=== PATIENT | female | born 2000 | race Caucasian/White ===

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

== ENCOUNTER 2024-04-25 07:23 | Inpatient (IN) ==
[2024-04-25] MEDS ORDERED: OXYTOCIN 30 UNITS/NSS 30 UNITS/500 ML BAG IV PRN (07:51)
[2024-04-25] MEDS ORDERED: LIDOCAINE 1% LOCAL 20 ML VIAL INFIL PRN (07:51)
--- NOTE | 2024-04-25 08:01 | History & Physical Report ---
Date of Service April 25, 2024 Assessment & Plan (1) Carrier of group B Streptococcus: (2) Obesity affecting : (3) Encounter for induction of labor: (4) DVT (deep venous thrombosis): Plan admit for iol. fetus category one. pitocin induction. epidural on demand, arom when indicated. Anticipate . No heparin for two days. Plan lovenox pp. Admission and Anticipated Discharge Date Admission Date: April 25, 2024 History of Present Illness Chief Complaint: iol Primary Care Provider: NO PCP Patient is aa 24 with iup at 39 3/7 weeks who presents for scheduled iol as was on heparin for a hx of dvt. has been uncomplicated. Presented for a bulb last night but it fell out prior to leaving. Notees no vb/lof. +fm. and Delivery Plans Hx of DVT on OCP *follow with heme and recs Lovenox and switching to heparin at 36wks - on heparin 5000u bid Lovenox pp - IOL 04/25 Obesity (BMI between 35-39 @ beginning of ) *Growth US @ 32 wks *Weekly NSTs @ 36wks * GBS + - Treat in labor Rubella equivocal-offer pp OB Labs: Blood Type A Positive 09/24/23 Antibody Screen NEGATIVE 09/24/23 Hgb 14.1 g/dl (12.0-16.0) 03/30/24 Hct 42.0 % (37.0-47.0) 03/30/24 MCV 83.8 fL (80.0-100.0) 03/30/24 Plt Count 250 K/uL (130-400) 03/30/24 Rubella IgG Antibody Equivocal (Immune) L 09/24/23 RPR Nonreactive (Nonreactive) 09/24/23 Hep Bs Antigen Negative (Negative) 09/24/23 Hepatitis C Antibody Negative (Negative) 09/24/23 HIV 1&2 Ab/P24 Ag 4thGn Negative (Negative) 09/24/23 Glucose 1 Hr 50 gm 132 mg/dl (70-130) H 11/19/23 OB Optional Labs: Chlamydia trachomatis RNA Not Detected (NotDetected) 09/24/23 Neisseria gonorrhoeae RNA Not Detected (NotDetected) 09/24/23 Thyroid Stimulating Hormone (TSH) 1.910 uIu/ml (0.300-4.500) 10/08/23 Labs Reviewed: neg horizon 2022 gbs pos--akh Allergies Allergy/AdvReac Type Severity Reaction Status Date / Time cat dander Allergy Severe respiratory Verified 04/24/24 19:39 distress dog dander Allergy Severe respiratory Verified 04/24/24 19:39 distress grass pollen Allergy Severe respiratory Verified 04/24/24 19:39 distress house dust mite Allergy Severe respiratory Verified 04/24/24 19:39 distress ragweed pollen Allergy Severe respiratory Verified 04/24/24 19:39 distress No Known Drug Allergies AdvReac Unknown NKDA Verified 04/24/24 19:39 "MULTIPLE ENVIROMENTAL" Allergy Severe RESPIRATORY Uncoded 04/24/24 13:25 DISTRESS TREES Allergy Severe respiratory Uncoded 04/24/24 19:39 distress Weeds Allergy Severe respiratory Uncoded 04/24/24 19:39 distress Home Medications Medication Instructions Recorded Confirmed Type heparin, porcine (PF) 5,000 5,000 unit subcut BID 04/24/24 04/25/24 History unit/0.5 mL injection solution vits no.124-ferrous fum 1 tab PO DAILY 04/24/24 04/25/24 History 27 mg iron-folic acid 800 mcg tablet ( Vitamin) Patient History Medical History Varicella vaccination DVT (deep venous thrombosis) had 5 years ago Allergic rhinitis Common migraine without aura Urinary tract infection History of COVID-19 diagnosed 03/01/20 @ [facility] in [place]--chest pressure/cough Abdominal pain, lower Surgical History S/P colonoscopy History of wisdom tooth extraction S/P tonsillectomy as a child Family History Aunt Congenital heart disease Family history of diabetes mellitus Father Mitral valve prolapse Grandfather (Maternal) Family history of diabetes mellitus Uncle Family history of diabetes mellitus Other Diabetes Myocardial infarction No family history of adverse response to anesthesia Denies family history of Ovarian cancer Prostate cancer Breast cancer Colorectal cancer Uterine cancer Social History Smoking Status: Never smoker Second Hand Exposure: Yes (grandparents smoked); Do You Dip or Chew Tobacco: No; Hx Alcohol Use: No Hx Substance Use: No Preferred Language: Latvian Communication Ability: Effective Broomcorn Grader Required: No Beliefs That Will Affect Care: None marital status: marital status details: Marvin Jenkins (28) [phone] Current Living Situation: Spouse Current Living Situation Comment: Lives with and dog current occupational status: employed current occupation: [employer] Feels Safe at Home: Yes Safety Concerns: Feels Safe At This Time Assistive Devices: None 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
[2024-04-25 08:28] LABS: Hematocrit (blood only) 40.4 % (37.0-47.0); Mean Corpuscular Hemoglobin 28.9 pg (25.0-34.0); Mean Corpuscular Hgb Conc 34.7 g/dL (32.0-36.0); Mean Corpuscular Volume 83.3 fL (80.0-100.0); Mean Platelet Volume 11.8 fL (9.4-12.4); Platelet Count 205 K/uL (130-400); RDW Coefficient of Variation 14.7 % (11.5-14.5); RDW Standard Deviation 44.5 fL (36.4-46.3); Red Blood Count 4.85 M/uL (4.20-5.40); White Blood Count 14.31 K/ul (4.8-10.8)
[2024-04-25 08:54] LABS: INR 0.9 (0.9-1.1); Partial Thromboplastin Time 26 Seconds (21-31); Prothrombin Time 9.7 Seconds (9.0-12.0)
[2024-04-25] MEDS: PENICILLIN GK 6 MU in SODIUM CHLORIDE 0.9% 250 ML IV STA (08:59)
[2024-04-25] MEDS: OXYTOCIN 30 UNITS/NSS 30 UNITS/500 ML BAG IV PRN (09:00)
[2024-04-25] MEDS: SODIUM CHLORIDE 0.9% 1,000 ML IV SCH (10:06)
[2024-04-25] MEDS: PENICILLIN GK 3 MU in DEXTROSE 5% 100 ML IV PRN (12:33)
[2024-04-25] MEDS: SODIUM CHLORIDE 0.9% PF INJ 10 ML VIAL ONE (14:25)
[2024-04-25] MEDS: ePHEDrine sulfate 50 MG/ML AMP ONE (14:25)
[2024-04-25] MEDS: fentaNYL citrate PF 100 MCG/2 ML VIAL ONE (14:25)
[2024-04-25] MEDS: BUPIVACAINE 0.25% PF 30 ML VIAL ONE (14:25)
[2024-04-25] MEDS: LIDOCAINE 2%/EPINEPHRINE 1:200,000 20 ML PF ONE (14:25)
[2024-04-25] MEDS: fentANYL 2 MCG/ML BUPIVacaine 0.125%-NSS 100ML BAG ONE (14:26)
--- NOTE | 2024-04-25 14:40 | Anesthesiology Consultation ---
Date of Service April 25, 2024 Assessment & Plan Chart Review Chart Review: Acceptable Risk for Labor Epidural Consults Requested none History Height/Weight Height: 5 ft 2 in Weight: 107.955 kg Allergies Allergy/AdvReac Type Severity Reaction Status Date / Time cat dander Allergy Severe respiratory Verified 04/24/24 19:39 distress dog dander Allergy Severe respiratory Verified 04/24/24 19:39 distress grass pollen Allergy Severe respiratory Verified 04/24/24 19:39 distress house dust mite Allergy Severe respiratory Verified 04/24/24 19:39 distress ragweed pollen Allergy Severe respiratory Verified 04/24/24 19:39 distress No Known Drug Allergies AdvReac Unknown NKDA Verified 04/24/24 19:39 "MULTIPLE ENVIROMENTAL" Allergy Severe RESPIRATORY Uncoded 04/24/24 13:25 DISTRESS TREES Allergy Severe respiratory Uncoded 04/24/24 19:39 distress Weeds Allergy Severe respiratory Uncoded 04/24/24 19:39 distress Medications Home Medications Medication Instructions Recorded Confirmed Last Taken heparin, porcine (PF) 5,000 5,000 unit subcut BID 04/24/24 04/25/24 04/23/24 08:00 unit/0.5 mL injection solution vits no.124-ferrous fum 1 tab PO DAILY 04/24/24 04/25/24 04/24/24 27 mg iron-folic acid 800 mcg tablet ( Vitamin) Active Medications Generic Name Dose Route Start Last Admin Trade Name Freq PRN Reason Stop Dose Admin Oxytocin 30 units in 500 mls @ 16 mls/hr 04/25/24 07:51 04/25/24 12:30 Pitocin 30 Units/Nss IV 04/27/24 07:50 0.96 units/hr .Q24H PRN 16 mls/hr Labor Induction/Augmentation Titration Protocol 0.96 UNITS/HR Penicillin G Potassium 3 mu/ 106 mls @ 100 mls/hr 04/25/24 10:51 04/25/24 12:33 Dextrose IV 05/05/24 10:50 100 mls/hr Q4H PRN Administration GBS(+) Until Delivery Sodium Chloride 1,000 mls @ 80 mls/hr 04/25/24 09:15 04/25/24 14:16 Nss IV 04/26/24 09:14 80 mls/hr .[id number] GIGI Administration Past Medical History Medical History Varicella vaccination DVT (deep venous thrombosis) had 5 years ago Allergic rhinitis Common migraine without aura Urinary tract infection History of COVID-19 diagnosed 03/01/20 @ [facility] in [place]--chest pressure/cough Abdominal pain, lower Past Family History Family History Aunt Congenital heart disease Family history of diabetes mellitus Father Mitral valve prolapse Grandfather (Maternal) Family history of diabetes mellitus Uncle Family history of diabetes mellitus Other Diabetes Myocardial infarction No family history of adverse response to anesthesia Denies family history of Ovarian cancer Prostate cancer Breast cancer Colorectal cancer Uterine cancer Past Surgical History Surgical History S/P colonoscopy History of wisdom tooth extraction S/P tonsillectomy as a child Social History Smoking Status: Never smoker Do You Dip or Chew Tobacco: No Hx Alcohol Use: No Alcohol type: beer, wine and hard liquor alcohol intake frequency: a few times a week Hx Substance Use: No substance use type: does not use Physical Exam Vital Signs Last Vital Signs Temp 36.8 C 04/25/24 07:39 Pulse 96 H 04/25/24 14:39 Resp 20 04/25/24 07:39 BP 117/56 L 04/25/24 14:39 Pulse Ox 100 04/25/24 14:38 Testing Laboratory Results 04/25/24 08:02 PT 9.7 Seconds (9.0-12.0) 04/25/24 08:02 INR 0.9 (0.9-1.1) 04/25/24 08:02 APTT 26 Seconds (21-31) 04/25/24 08:02 Blood Type A Positive 04/25/24 08:02 Antibody Screen NEGATIVE 04/25/24 08:02
[2024-04-25] MEDS ORDERED: LIDOCAINE 2% MPF LOCAL 5 ML VIAL EPI PRN (14:44)
[2024-04-25] MEDS ORDERED: ePHEDrine sulfate 50 MG/ML AMP IV PRN (14:44)
[2024-04-25] MEDS ORDERED: SODIUM CHLORIDE 0.9% PF INJ 10 ML VIAL EPI PRN (14:44)
[2024-04-25] MEDS ORDERED: BUPIVACAINE 0.25% PF 30 ML VIAL EPI PRN (14:44)
[2024-04-25] MEDS ORDERED: diphenhydrAMINE 50 MG/ML VIAL IV PRN (14:44)
[2024-04-25] MEDS ORDERED: NALOXONE HCL 0.4 MG/1 ML VIAL/CARP IV PRN (14:44)
[2024-04-25] MEDS ORDERED: fentaNYL citrate PF 100 MCG/2 ML VIAL EPI PRN (14:44)
[2024-04-25] MEDS ORDERED: NALOXONE HCL 1 MG in SODIUM CHLORIDE 0.9% 1,000 ML IV PRN (14:44)
[2024-04-25] MEDS ORDERED: NALBUPHINE HCL INJ 10 MG/ML AMP IV PRN (14:44)
[2024-04-25] MEDS ORDERED: ROPIVACAINE 0.5% PF 5 MG/ML 20 ML VIAL EPI PRN (14:44)
--- NOTE | 2024-04-25 15:37 | Labor Progress Brief Note ---
Date of Service April 25, 2024 Subjective comfortable Assessment & Plan (1) Encounter for induction of labor: Plan attempt at arom, I think successful. Will continue current management. fetus category one. Admission and Anticipated Discharge Date Admission Date: April 25, 2024 Physical Exam Physical Exam: cx--3/75/-2/ant arom--small, clear? toco--q2-4 min, pit at 16 efm--130s wtih mod variability, accels to 160s, no decels Results & Data Vital Signs (Past 12 Hours) Vital Signs Temp Pulse Resp BP Pulse Ox 04/25/24 15:33 100 04/25/24 15:33 95 H 04/25/24 15:28 100 04/25/24 15:28 81 04/25/24 15:23 99 04/25/24 15:23 77 04/25/24 15:19 88 L 04/25/24 15:19 88 04/25/24 15:18 100 04/25/24 15:18 87 04/25/24 15:18 78 04/25/24 15:18 102/58 L 04/25/24 15:13 100 04/25/24 15:13 79 04/25/24 15:08 100 04/25/24 15:08 81 04/25/24 15:05 85 04/25/24 15:05 114/57 L 04/25/24 15:03 100 04/25/24 15:03 84 04/25/24 14:58 100 04/25/24 14:58 79 04/25/24 14:53 100 04/25/24 14:53 85 04/25/24 14:48 100 04/25/24 14:48 89 04/25/24 14:48 107/53 L 04/25/24 14:43 100 04/25/24 14:43 93 H 04/25/24 14:43 88 04/25/24 14:43 104/51 L 04/25/24 14:39 96 H 04/25/24 14:39 117/56 L 04/25/24 14:38 100 04/25/24 14:38 92 H 04/25/24 14:33 100 04/25/24 14:33 94 H 04/25/24 14:31 90 04/25/24 14:31 113/53 L 04/25/24 14:29 104 H 04/25/24 14:29 113/56 L 04/25/24 14:28 100 04/25/24 14:28 110 H 04/25/24 14:27 118 H 04/25/24 14:27 103/53 L 04/25/24 14:25 93 H 04/25/24 14:25 105/52 L 04/25/24 14:23 100 04/25/24 14:23 92 H 04/25/24 14:23 120/67 04/25/24 14:21 80 04/25/24 14:21 129/71 04/25/24 14:18 98 04/25/24 14:18 87 04/25/24 14:13 100 04/25/24 14:13 76 04/25/24 14:08 99 04/25/24 14:08 83 04/25/24 14:03 99 04/25/24 14:03 73 04/25/24 13:58 100 04/25/24 13:58 67 04/25/24 13:53 100 04/25/24 13:53 72 04/25/24 13:49 82 04/25/24 13:49 137/79 04/25/24 13:48 100 04/25/24 13:48 78 04/25/24 12:00 75 04/25/24 12:00 146/79 H 04/25/24 10:59 82 04/25/24 10:59 126/75 04/25/24 10:04 70 04/25/24 10:04 142/73 H 04/25/24 09:02 83 04/25/24 09:02 127/68 04/25/24 07:39 36.8 C 90 20 123/61 04/25/24 07:33 20 04/25/24 07:33 36.8 C 20 04/25/24 07:31 90 123/61 Coding Level of Care Code None Diagnoses Encounter for induction of labor Z34.90
[2024-04-25] MEDS: fentaNYL citrate PF 100 MCG/2 ML VIAL EPI STA (16:26)
[2024-04-25] MEDS: BUPIVACAINE 0.25% PF 30 ML VIAL EPI STA (16:26)
[2024-04-25] MEDS: SODIUM CHLORIDE 0.9% PF INJ 10 ML VIAL EPI STA (16:27)
[2024-04-25] MEDS: LIDOCAINE 2%/EPINEPHRINE 1:200,000 20 ML PF EPI STA (16:27)
[2024-04-25] MEDS: fentANYL 2 MCG/ML BUPIVacaine 0.125%-NSS 100ML BAG EPI PRN (20:30)
--- NOTE | 2024-04-25 21:30 | Labor Progress Brief Note ---
Date of Service April 25, 2024 Subjective Pushing the button on epidural, nausea Assessment & Plan (1) Encounter for induction of labor: (2) Carrier of group B Streptococcus: (3) Obesity affecting : Plan fse/iupc placed. fetus category one. Will maximize contractions. making a small amount of change. Admission and Anticipated Discharge Date Admission Date: April 25, 2024 Physical Exam Physical Exam: cx--5/90/-2 toco--q2-4, pit at 4 efm--130s with mod varariability, accels present, no decels iupc and fse placed. Results & Data Vital Signs (Past 12 Hours) Vital Signs Temp Pulse Resp BP Pulse Ox 04/25/24 21:23 100 04/25/24 21:23 77 04/25/24 21:19 76 04/25/24 21:19 107/58 L 04/25/24 21:18 100 04/25/24 21:18 75 04/25/24 21:13 100 04/25/24 21:13 77 04/25/24 21:13 109/57 L 04/25/24 21:12 93 04/25/24 21:12 78 04/25/24 21:08 100 04/25/24 21:08 82 04/25/24 21:04 78 04/25/24 21:04 120/68 04/25/24 21:03 99 04/25/24 21:03 81 04/25/24 21:00 18 04/25/24 21:00 36.5 C 18 04/25/24 20:58 99 04/25/24 20:58 79 04/25/24 20:53 99 04/25/24 20:53 83 04/25/24 20:49 77 04/25/24 20:49 116/72 04/25/24 20:48 100 04/25/24 20:48 82 04/25/24 20:43 100 04/25/24 20:43 81 04/25/24 20:38 99 04/25/24 20:38 79 04/25/24 20:34 76 04/25/24 20:34 118/64 04/25/24 20:33 99 04/25/24 20:33 82 04/25/24 20:30 18 04/25/24 20:30 18 04/25/24 20:28 99 04/25/24 20:28 79 04/25/24 20:23 100 04/25/24 20:23 94 H 04/25/24 20:20 77 04/25/24 20:20 119/72 04/25/24 20:18 100 04/25/24 20:18 92 H 04/25/24 20:14 92 04/25/24 20:14 97 H 04/25/24 20:13 100 04/25/24 20:13 95 H 04/25/24 20:08 100 04/25/24 20:08 89 04/25/24 20:03 99 04/25/24 20:03 73 04/25/24 20:03 118/63 04/25/24 20:00 18 04/25/24 20:00 18 04/25/24 19:58 99 04/25/24 19:58 74 04/25/24 19:53 99 04/25/24 19:53 83 04/25/24 19:49 74 04/25/24 19:49 119/64 04/25/24 19:48 100 04/25/24 19:48 75 04/25/24 19:43 99 04/25/24 19:43 76 04/25/24 19:38 98 04/25/24 19:38 71 04/25/24 19:33 98 04/25/24 19:33 73 04/25/24 19:33 120/66 04/25/24 19:30 18 04/25/24 19:30 18 04/25/24 19:28 100 04/25/24 19:28 79 04/25/24 19:23 99 04/25/24 19:23 71 04/25/24 19:19 71 04/25/24 19:19 119/66 04/25/24 19:18 99 04/25/24 19:18 72 04/25/24 19:13 98 04/25/24 19:13 73 04/25/24 19:08 100 04/25/24 19:08 94 H 04/25/24 19:06 36.5 C 18 04/25/24 19:03 99 04/25/24 19:03 76 04/25/24 18:59 94 04/25/24 18:59 85 04/25/24 18:58 98 04/25/24 18:58 80 04/25/24 18:53 98 04/25/24 18:53 80 04/25/24 18:48 99 04/25/24 18:48 91 H 04/25/24 18:48 121/66 04/25/24 18:43 100 04/25/24 18:43 85 04/25/24 18:38 100 04/25/24 18:38 101 H 04/25/24 18:35 82 04/25/24 18:35 117/68 04/25/24 18:33 100 04/25/24 18:33 84 04/25/24 18:28 100 04/25/24 18:28 89 04/25/24 18:23 100 04/25/24 18:23 79 04/25/24 18:19 78 04/25/24 18:19 113/57 L 04/25/24 18:18 100 04/25/24 18:18 87 04/25/24 18:17 92 04/25/24 18:17 83 04/25/24 18:13 100 04/25/24 18:13 80 04/25/24 18:08 100 04/25/24 18:08 81 04/25/24 18:07 91 04/25/24 18:07 80 04/25/24 18:05 73 04/25/24 18:05 103/53 L 04/25/24 18:03 100 04/25/24 18:03 76 04/25/24 17:58 100 04/25/24 17:58 80 04/25/24 17:53 100 04/25/24 17:53 74 04/25/24 17:50 81 04/25/24 17:50 131/75 04/25/24 17:48 100 04/25/24 17:48 76 04/25/24 17:43 100 04/25/24 17:43 73 04/25/24 17:38 98 04/25/24 17:38 78 04/25/24 17:34 86 04/25/24 17:34 132/77 04/25/24 17:33 100 04/25/24 17:33 83 04/25/24 17:28 100 04/25/24 17:28 79 04/25/24 17:23 100 04/25/24 17:23 76 04/25/24 17:18 100 04/25/24 17:18 77 04/25/24 17:18 117/68 04/25/24 17:13 100 04/25/24 17:13 69 04/25/24 17:08 100 04/25/24 17:08 71 04/25/24 17:04 71 04/25/24 17:04 127/73 04/25/24 17:03 100 04/25/24 17:03 74 04/25/24 16:58 100 04/25/24 16:58 74 04/25/24 16:53 100 04/25/24 16:53 72 04/25/24 16:50 75 04/25/24 16:50 118/56 L 04/25/24 16:48 100 04/25/24 16:48 68 04/25/24 16:43 100 04/25/24 16:43 72 04/25/24 16:38 98 04/25/24 16:38 73 04/25/24 16:33 100 04/25/24 16:33 78 04/25/24 16:33 122/70 04/25/24 16:28 100 04/25/24 16:28 70 04/25/24 16:23 100 04/25/24 16:23 79 04/25/24 16:20 75 04/25/24 16:20 121/70 04/25/24 16:18 100 04/25/24 16:18 72 04/25/24 16:13 100 04/25/24 16:13 69 04/25/24 16:08 100 04/25/24 16:08 72 04/25/24 16:06 77 04/25/24 16:06 124/76 04/25/24 16:03 100 04/25/24 16:03 79 04/25/24 15:58 100 04/25/24 15:58 72 04/25/24 15:53 100 04/25/24 15:53 72 04/25/24 15:53 92 04/25/24 15:53 82 04/25/24 15:49 81 04/25/24 15:49 152/69 H 04/25/24 15:48 100 04/25/24 15:48 80 04/25/24 15:43 99 04/25/24 15:43 84 04/25/24 15:41 92 04/25/24 15:41 82 04/25/24 15:38 100 04/25/24 15:38 80 04/25/24 15:36 93 04/25/24 15:36 78 04/25/24 15:33 100 04/25/24 15:33 95 H 04/25/24 15:28 100 04/25/24 15:28 81 04/25/24 15:23 99 04/25/24 15:23 77 04/25/24 15:19 88 L 04/25/24 15:19 88 04/25/24 15:18 100 04/25/24 15:18 87 04/25/24 15:18 78 04/25/24 15:18 102/58 L 04/25/24 15:15 20 04/25/24 15:15 36.6 C 20 04/25/24 15:13 100 04/25/24 15:13 79 04/25/24 15:08 100 04/25/24 15:08 81 04/25/24 15:05 85 04/25/24 15:05 114/57 L 04/25/24 15:03 100 04/25/24 15:03 84 04/25/24 14:58 100 04/25/24 14:58 79 04/25/24 14:53 100 04/25/24 14:53 85 04/25/24 14:48 100 04/25/24 14:48 89 04/25/24 14:48 107/53 L 04/25/24 14:43 100 04/25/24 14:43 93 H 04/25/24 14:43 88 04/25/24 14:43 104/51 L 04/25/24 14:39 96 H 04/25/24 14:39 117/56 L 04/25/24 14:38 100 04/25/24 14:38 92 H 04/25/24 14:33 100 04/25/24 14:33 94 H 04/25/24 14:31 90 04/25/24 14:31 113/53 L 04/25/24 14:29 104 H 04/25/24 14:29 113/56 L 04/25/24 14:28 100 04/25/24 14:28 110 H 04/25/24 14:27 118 H 04/25/24 14:27 103/53 L 04/25/24 14:25 93 H 04/25/24 14:25 105/52 L 04/25/24 14:23 100 04/25/24 14:23 92 H 04/25/24 14:23 120/67 04/25/24 14:21 80 04/25/24 14:21 129/71 04/25/24 14:18 98 04/25/24 14:18 87 04/25/24 14:13 100 04/25/24 14:13 76 04/25/24 14:08 99 04/25/24 14:08 83 04/25/24 14:03 99 04/25/24 14:03 73 04/25/24 13:58 100 04/25/24 13:58 67 04/25/24 13:53 100 04/25/24 13:53 72 04/25/24 13:49 82 04/25/24 13:49 137/79 04/25/24 13:48 100 04/25/24 13:48 78 04/25/24 12:00 75 04/25/24 12:00 146/79 H 04/25/24 10:59 82 04/25/24 10:59 126/75 04/25/24 10:04 70 04/25/24 10:04 142/73 H Coding Level of Care Code None Diagnoses Encounter for induction of labor Z34.90 Carrier of group B Streptococcus Z22.330 Obesity affecting O99.210
[2024-04-25] MEDS: ONDANSETRON INJ 2 MG/ML 2 ML VIAL IV PRN (21:34)
--- NOTE | 2024-04-25 21:52 | Anesthesia Procedure Note ---
Date of Service April 25, 2024 Anesthesia Epidural Re-Dose Vital Signs Temp Pulse Resp BP Pulse Ox 36.5 C 74 18 116/65 100 04/25/24 21:00 04/25/24 21:48 04/25/24 21:00 04/25/24 21:48 04/25/24 21:48 Notes Pain Intensity: 0 Dilatation (cm): 5.0 Effacement (%): 90 Called by nursing to evaluate epidural as the patient is having increased pain. The epidural was re-dosed with the following medications (all medications via epidural route) after negative aspiration of the epidural catheter for CSF/HEME. 2% lidocaine 5ml. After Epidural Re-Dose Mental Status: alert / awake / arousable Pain: improving with treatment Airway Patency, RR, SpO2: stable & adequate BP & HR: stable & adequate
--- NOTE | 2024-04-26 01:09 | Labor Progress Brief Note ---
Date of Service April 26, 2024 Subjective not really feeling contractions, notes back pain Assessment & Plan (1) Encounter for induction of labor: Plan Discusssed pros/cons of laboring down and immediate pushing. she is agreeable to laboring down. Will labor down for one hour and then will start stage two . Fetus overall reassuring. efw at 1216 us was 50%, ac 75% (33 weeks). Admission and Anticipated Discharge Date Admission Date: April 25, 2024 Physical Exam Physical Exam: cx--c/c/0 toco--q1-3, pit at 28 efm--125 with mod varaibility, accels present, early /variable noted Results & Data Vital Signs (Past 12 Hours) Vital Signs Temp Pulse Resp BP Pulse Ox 04/26/24 01:03 100 04/26/24 01:03 85 04/26/24 01:03 86 134/80 04/26/24 00:58 84 100 04/26/24 00:53 92 H 100 04/26/24 00:48 78 128/66 100 04/26/24 00:43 73 100 04/26/24 00:38 74 100 04/26/24 00:34 75 127/70 04/26/24 00:33 74 100 04/26/24 00:30 18 04/26/24 00:30 18 04/26/24 00:28 87 99 04/26/24 00:27 81 91 04/26/24 00:23 76 99 04/26/24 00:18 80 131/67 100 04/26/24 00:13 87 100 04/26/24 00:09 93 H 92 04/26/24 00:08 68 96 04/26/24 00:03 75 102/53 L 98 04/26/24 00:00 18 04/26/24 00:00 18 04/25/24 23:58 97 04/25/24 23:58 66 04/25/24 23:53 98 04/25/24 23:53 70 04/25/24 23:50 70 04/25/24 23:50 102/50 L 04/25/24 23:48 98 04/25/24 23:48 77 04/25/24 23:43 96 04/25/24 23:43 71 04/25/24 23:38 97 04/25/24 23:38 66 04/25/24 23:33 98 04/25/24 23:33 67 04/25/24 23:33 96/50 L 04/25/24 23:30 16 04/25/24 23:30 16 04/25/24 23:28 97 04/25/24 23:28 69 04/25/24 23:23 97 04/25/24 23:23 70 04/25/24 23:18 98 04/25/24 23:18 68 04/25/24 23:18 67 04/25/24 23:18 99/55 L 04/25/24 23:13 98 04/25/24 23:13 68 04/25/24 23:08 99 04/25/24 23:08 72 04/25/24 23:03 100 04/25/24 23:03 73 04/25/24 23:03 108/53 L 04/25/24 23:00 18 04/25/24 23:00 36.8 C 18 04/25/24 22:58 100 04/25/24 22:58 77 04/25/24 22:53 100 04/25/24 22:53 98 H 04/25/24 22:50 91 04/25/24 22:50 80 04/25/24 22:48 99 04/25/24 22:48 80 04/25/24 22:48 79 04/25/24 22:48 121/66 04/25/24 22:43 97 04/25/24 22:43 76 04/25/24 22:38 98 04/25/24 22:38 75 04/25/24 22:34 72 04/25/24 22:34 112/59 L 04/25/24 22:33 98 04/25/24 22:33 74 04/25/24 22:30 16 04/25/24 22:30 16 04/25/24 22:28 98 04/25/24 22:28 73 04/25/24 22:23 97 04/25/24 22:23 72 04/25/24 22:19 78 04/25/24 22:19 114/60 04/25/24 22:18 97 04/25/24 22:18 79 04/25/24 22:13 96 04/25/24 22:13 82 04/25/24 22:08 97 04/25/24 22:08 78 04/25/24 22:04 74 04/25/24 22:04 109/57 L 04/25/24 22:03 97 04/25/24 22:03 77 04/25/24 22:00 18 04/25/24 22:00 18 04/25/24 21:58 96 04/25/24 21:58 76 04/25/24 21:53 98 04/25/24 21:53 74 04/25/24 21:48 100 04/25/24 21:48 74 04/25/24 21:48 116/65 04/25/24 21:46 75 04/25/24 21:46 113/63 04/25/24 21:43 100 04/25/24 21:43 69 04/25/24 21:38 100 04/25/24 21:38 73 04/25/24 21:35 93 H 04/25/24 21:35 110/63 04/25/24 21:33 100 04/25/24 21:33 81 04/25/24 21:28 100 04/25/24 21:28 75 04/25/24 21:28 90 04/25/24 21:28 90 04/25/24 21:23 100 04/25/24 21:23 77 04/25/24 21:19 76 04/25/24 21:19 107/58 L 04/25/24 21:18 100 04/25/24 21:18 75 04/25/24 21:13 100 04/25/24 21:13 77 04/25/24 21:13 109/57 L 04/25/24 21:12 93 04/25/24 21:12 78 04/25/24 21:08 100 04/25/24 21:08 82 04/25/24 21:04 78 04/25/24 21:04 120/68 04/25/24 21:03 99 04/25/24 21:03 81 04/25/24 21:00 18 04/25/24 21:00 36.5 C 18 04/25/24 20:58 99 04/25/24 20:58 79 04/25/24 20:53 99 04/25/24 20:53 83 04/25/24 20:49 77 04/25/24 20:49 116/72 04/25/24 20:48 100 04/25/24 20:48 82 04/25/24 20:43 100 04/25/24 20:43 81 04/25/24 20:38 99 04/25/24 20:38 79 04/25/24 20:34 76 04/25/24 20:34 118/64 04/25/24 20:33 99 04/25/24 20:33 82 04/25/24 20:30 18 04/25/24 20:30 18 04/25/24 20:28 99 04/25/24 20:28 79 04/25/24 20:23 100 04/25/24 20:23 94 H 04/25/24 20:20 77 04/25/24 20:20 119/72 04/25/24 20:18 100 04/25/24 20:18 92 H 04/25/24 20:14 92 04/25/24 20:14 97 H 04/25/24 20:13 100 04/25/24 20:13 95 H 04/25/24 20:08 100 04/25/24 20:08 89 04/25/24 20:03 99 04/25/24 20:03 73 04/25/24 20:03 118/63 04/25/24 20:00 18 04/25/24 20:00 18 04/25/24 19:58 99 04/25/24 19:58 74 04/25/24 19:53 99 04/25/24 19:53 83 04/25/24 19:49 74 04/25/24 19:49 119/64 04/25/24 19:48 100 04/25/24 19:48 75 04/25/24 19:43 99 04/25/24 19:43 76 04/25/24 19:38 98 04/25/24 19:38 71 04/25/24 19:33 98 04/25/24 19:33 73 04/25/24 19:33 120/66 04/25/24 19:30 18 04/25/24 19:30 18 04/25/24 19:28 100 04/25/24 19:28 79 04/25/24 19:23 99 04/25/24 19:23 71 04/25/24 19:19 71 04/25/24 19:19 119/66 01/28/25 19:18 99 04/25/24 19:18 72 04/25/24 19:13 98 04/25/24 19:13 73 04/25/24 19:08 100 04/25/24 19:08 94 H 04/25/24 19:06 36.5 C 18 04/25/24 19:03 99 04/25/24 19:03 76 04/25/24 18:59 94 04/25/24 18:59 85 04/25/24 18:58 98 04/25/24 18:58 80 04/25/24 18:53 98 04/25/24 18:53 80 04/25/24 18:48 99 04/25/24 18:48 91 H 04/25/24 18:48 121/66 04/25/24 18:43 100 04/25/24 18:43 85 04/25/24 18:38 100 04/25/24 18:38 101 H 04/25/24 18:35 82 04/25/24 18:35 117/68 04/25/24 18:33 100 04/25/24 18:33 84 04/25/24 18:28 100 04/25/24 18:28 89 04/25/24 18:23 100 04/25/24 18:23 79 04/25/24 18:19 78 04/25/24 18:19 113/57 L 04/25/24 18:18 100 04/25/24 18:18 87 04/25/24 18:17 92 04/25/24 18:17 83 04/25/24 18:13 100 04/25/24 18:13 80 04/25/24 18:08 100 04/25/24 18:08 81 04/25/24 18:07 91 04/25/24 18:07 80 04/25/24 18:05 73 04/25/24 18:05 103/53 L 04/25/24 18:03 100 04/25/24 18:03 76 04/25/24 17:58 100 04/25/24 17:58 80 04/25/24 17:53 100 04/25/24 17:53 74 04/25/24 17:50 81 04/25/24 17:50 131/75 04/25/24 17:48 100 04/25/24 17:48 76 04/25/24 17:43 100 04/25/24 17:43 73 04/25/24 17:38 98 04/25/24 17:38 78 04/25/24 17:34 86 04/25/24 17:34 132/77 04/25/24 17:33 100 04/25/24 17:33 83 04/25/24 17:28 100 04/25/24 17:28 79 04/25/24 17:23 100 04/25/24 17:23 76 04/25/24 17:18 100 04/25/24 17:18 77 04/25/24 17:18 117/68 04/25/24 17:13 100 04/25/24 17:13 69 04/25/24 17:08 100 04/25/24 17:08 71 04/25/24 17:04 71 04/25/24 17:04 127/73 04/25/24 17:03 100 04/25/24 17:03 74 04/25/24 16:58 100 04/25/24 16:58 74 04/25/24 16:53 100 04/25/24 16:53 72 04/25/24 16:50 75 04/25/24 16:50 118/56 L 04/25/24 16:48 100 04/25/24 16:48 68 04/25/24 16:43 100 04/25/24 16:43 72 04/25/24 16:38 98 04/25/24 16:38 73 04/25/24 16:33 100 04/25/24 16:33 78 04/25/24 16:33 122/70 04/25/24 16:28 100 04/25/24 16:28 70 04/25/24 16:23 100 04/25/24 16:23 79 04/25/24 16:20 75 04/25/24 16:20 121/70 04/25/24 16:18 100 04/25/24 16:18 72 04/25/24 16:13 100 04/25/24 16:13 69 04/25/24 16:08 100 04/25/24 16:08 72 04/25/24 16:06 77 04/25/24 16:06 124/76 04/25/24 16:03 100 04/25/24 16:03 79 04/25/24 15:58 100 04/25/24 15:58 72 04/25/24 15:53 100 04/25/24 15:53 72 04/25/24 15:53 92 04/25/24 15:53 82 04/25/24 15:49 81 04/25/24 15:49 152/69 H 04/25/24 15:48 100 04/25/24 15:48 80 04/25/24 15:43 99 04/25/24 15:43 84 04/25/24 15:41 92 04/25/24 15:41 82 04/25/24 15:38 100 04/25/24 15:38 80 04/25/24 15:36 93 04/25/24 15:36 78 04/25/24 15:33 100 04/25/24 15:33 95 H 04/25/24 15:28 100 04/25/24 15:28 81 04/25/24 15:23 99 04/25/24 15:23 77 04/25/24 15:19 88 L 04/25/24 15:19 88 04/25/24 15:18 100 04/25/24 15:18 87 04/25/24 15:18 78 04/25/24 15:18 102/58 L 04/25/24 15:15 20 04/25/24 15:15 36.6 C 20 04/25/24 15:13 100 04/25/24 15:13 79 04/25/24 15:08 100 04/25/24 15:08 81 04/25/24 15:05 85 04/25/24 15:05 114/57 L 04/25/24 15:03 100 04/25/24 15:03 84 04/25/24 14:58 100 04/25/24 14:58 79 04/25/24 14:53 100 04/25/24 14:53 85 04/25/24 14:48 100 04/25/24 14:48 89 04/25/24 14:48 107/53 L 04/25/24 14:43 100 04/25/24 14:43 93 H 04/25/24 14:43 88 04/25/24 14:43 104/51 L 04/25/24 14:39 96 H 04/25/24 14:39 117/56 L 04/25/24 14:38 100 04/25/24 14:38 92 H 04/25/24 14:33 100 04/25/24 14:33 94 H 04/25/24 14:31 90 04/25/24 14:31 113/53 L 04/25/24 14:29 104 H 04/25/24 14:29 113/56 L 04/25/24 14:28 100 04/25/24 14:28 110 H 04/25/24 14:27 118 H 04/25/24 14:27 103/53 L 04/25/24 14:25 93 H 04/25/24 14:25 105/52 L 04/25/24 14:23 100 04/25/24 14:23 92 H 04/25/24 14:23 120/67 04/25/24 14:21 80 04/25/24 14:21 129/71 04/25/24 14:18 98 04/25/24 14:18 87 04/25/24 14:13 100 04/25/24 14:13 76 04/25/24 14:08 99 04/25/24 14:08 83 04/25/24 14:03 99 04/25/24 14:03 73 04/25/24 13:58 100 04/25/24 13:58 67 04/25/24 13:53 100 04/25/24 13:53 72 04/25/24 13:49 82 04/25/24 13:49 137/79 04/25/24 13:48 100 04/25/24 13:48 78 Coding Level of Care Code None Diagnoses Encounter for induction of labor Z34.90
--- NOTE | 2024-04-26 03:32 | Labor Progress Brief Note ---
Date of Service April 26, 2024 Subjective labored down for 1 hr and pushing for about 1.5 hours with good effort. Assessment & Plan (1) Encounter for induction of labor: (2) Carrier of group B Streptococcus: Plan The station has not moved over this time at all. I suspect cpd and ftd. REcommend c/s, they are agreeable. Consent reviewed and signed. Admission and Anticipated Discharge Date Admission Date: April 25, 2024 Physical Exam Physical Exam: cx--c/c/0 with caput toco--q1-2min, pit at 28 efm--150s with mod varaibility, variables with pushing. Results & Data Vital Signs (Past 12 Hours) Vital Signs Temp Pulse Resp BP Pulse Ox 04/26/24 03:28 104 H 99 04/26/24 03:23 103 H 99 04/26/24 03:19 87 132/64 04/26/24 03:18 93 H 99 04/26/24 03:13 99 H 73 L 04/26/24 03:11 90 86 L 04/26/24 03:08 87 71 L 04/26/24 03:06 76 85 L 04/26/24 03:04 71 148/65 H 04/26/24 03:03 103 H 74 L 04/26/24 02:58 91 H 100 04/26/24 02:53 79 91 04/26/24 02:51 76 89 L 04/26/24 02:48 75 100 04/26/24 02:45 88 88 L 04/26/24 02:43 87 73 L 04/26/24 02:39 85 86 L 04/26/24 02:38 82 99 04/26/24 02:33 84 138/89 100 04/26/24 02:30 86 20 91 04/26/24 02:28 80 100 04/26/24 02:23 71 99 04/26/24 02:22 88 92 04/26/24 02:18 102 H 99 04/26/24 02:14 103 H 91 04/26/24 02:13 90 100 04/26/24 02:08 100 04/26/24 02:08 92 H 04/26/24 02:08 95 H 93 04/26/24 02:05 73 118/64 04/26/24 02:03 94 H 100 04/26/24 01:58 102 H 100 04/26/24 01:53 90 100 04/26/24 01:48 86 133/76 100 04/26/24 01:43 80 100 04/26/24 01:38 81 100 04/26/24 01:34 82 125/75 04/26/24 01:33 85 100 04/26/24 01:30 18 04/26/24 01:30 18 04/26/24 01:28 98 H 100 04/26/24 01:23 85 100 04/26/24 01:19 83 128/76 04/26/24 01:18 82 100 04/26/24 01:13 89 100 04/26/24 01:08 87 100 04/26/24 01:03 100 04/26/24 01:03 85 04/26/24 01:03 86 134/80 04/26/24 01:00 18 04/26/24 01:00 36.7 C 18 04/26/24 00:58 84 100 04/26/24 00:53 92 H 100 04/26/24 00:48 78 128/66 100 04/26/24 00:43 73 100 04/26/24 00:38 74 100 04/26/24 00:34 75 127/70 04/26/24 00:33 74 100 04/26/24 00:30 18 04/26/24 00:30 18 04/26/24 00:28 87 99 04/26/24 00:27 81 91 04/26/24 00:23 76 99 04/26/24 00:18 80 131/67 100 04/26/24 00:13 87 100 04/26/24 00:09 93 H 92 04/26/24 00:08 68 96 04/26/24 00:03 75 102/53 L 98 04/26/24 00:00 18 04/26/24 00:00 18 04/25/24 23:58 97 04/25/24 23:58 66 04/25/24 23:53 98 04/25/24 23:53 70 04/25/24 23:50 70 04/25/24 23:50 102/50 L 04/25/24 23:48 98 04/25/24 23:48 77 04/25/24 23:43 96 04/25/24 23:43 71 04/25/24 23:38 97 04/25/24 23:38 66 04/25/24 23:33 98 04/25/24 23:33 67 04/25/24 23:33 96/50 L 04/25/24 23:30 16 04/25/24 23:30 16 04/25/24 23:28 97 04/25/24 23:28 69 04/25/24 23:23 97 04/25/24 23:23 70 04/25/24 23:18 98 04/25/24 23:18 68 04/25/24 23:18 67 04/25/24 23:18 99/55 L 04/25/24 23:13 98 04/25/24 23:13 68 04/25/24 23:08 99 04/25/24 23:08 72 04/25/24 23:03 100 04/25/24 23:03 73 04/25/24 23:03 108/53 L 04/25/24 23:00 18 04/25/24 23:00 36.8 C 18 04/25/24 22:58 100 04/25/24 22:58 77 04/25/24 22:53 100 04/25/24 22:53 98 H 04/25/24 22:50 91 04/25/24 22:50 80 04/25/24 22:48 99 04/25/24 22:48 80 04/25/24 22:48 79 04/25/24 22:48 121/66 04/25/24 22:43 97 04/25/24 22:43 76 04/25/24 22:38 98 04/25/24 22:38 75 04/25/24 22:34 72 04/25/24 22:34 112/59 L 04/25/24 22:33 98 04/25/24 22:33 74 04/25/24 22:30 16 04/25/24 22:30 16 04/25/24 22:28 98 04/25/24 22:28 73 04/25/24 22:23 97 04/25/24 22:23 72 04/25/24 22:19 78 04/25/24 22:19 114/60 04/25/24 22:18 97 04/25/24 22:18 79 04/25/24 22:13 96 04/25/24 22:13 82 01/28/25 22:08 97 04/25/24 22:08 78 04/25/24 22:04 74 04/25/24 22:04 109/57 L 04/25/24 22:03 97 04/25/24 22:03 77 04/25/24 22:00 18 04/25/24 22:00 18 04/25/24 21:58 96 04/25/24 21:58 76 04/25/24 21:53 98 04/25/24 21:53 74 04/25/24 21:48 100 04/25/24 21:48 74 04/25/24 21:48 116/65 04/25/24 21:46 75 04/25/24 21:46 113/63 04/25/24 21:43 100 04/25/24 21:43 69 04/25/24 21:38 100 04/25/24 21:38 73 04/25/24 21:35 93 H 04/25/24 21:35 110/63 04/25/24 21:33 100 04/25/24 21:33 81 04/25/24 21:28 100 04/25/24 21:28 75 04/25/24 21:28 90 04/25/24 21:28 90 04/25/24 21:23 100 04/25/24 21:23 77 04/25/24 21:19 76 04/25/24 21:19 107/58 L 04/25/24 21:18 100 04/25/24 21:18 75 04/25/24 21:13 100 04/25/24 21:13 77 04/25/24 21:13 109/57 L 04/25/24 21:12 93 04/25/24 21:12 78 04/25/24 21:08 100 04/25/24 21:08 82 04/25/24 21:04 78 04/25/24 21:04 120/68 04/25/24 21:03 99 04/25/24 21:03 81 04/25/24 21:00 18 04/25/24 21:00 36.5 C 18 04/25/24 20:58 99 04/25/24 20:58 79 04/25/24 20:53 99 04/25/24 20:53 83 04/25/24 20:49 77 04/25/24 20:49 116/72 04/25/24 20:48 100 04/25/24 20:48 82 04/25/24 20:43 100 04/25/24 20:43 81 04/25/24 20:38 99 04/25/24 20:38 79 04/25/24 20:34 76 04/25/24 20:34 118/64 04/25/24 20:33 99 04/25/24 20:33 82 04/25/24 20:30 18 04/25/24 20:30 18 04/25/24 20:28 99 04/25/24 20:28 79 04/25/24 20:23 100 04/25/24 20:23 94 H 04/25/24 20:20 77 04/25/24 20:20 119/72 04/25/24 20:18 100 04/25/24 20:18 92 H 04/25/24 20:14 92 04/25/24 20:14 97 H 04/25/24 20:13 100 04/25/24 20:13 95 H 04/25/24 20:08 100 04/25/24 20:08 89 04/25/24 20:03 99 04/25/24 20:03 73 04/25/24 20:03 118/63 04/25/24 20:00 18 04/25/24 20:00 18 04/25/24 19:58 99 04/25/24 19:58 74 04/25/24 19:53 99 04/25/24 19:53 83 04/25/24 19:49 74 04/25/24 19:49 119/64 04/25/24 19:48 100 04/25/24 19:48 75 04/25/24 19:43 99 04/25/24 19:43 76 04/25/24 19:38 98 04/25/24 19:38 71 04/25/24 19:33 98 04/25/24 19:33 73 04/25/24 19:33 120/66 04/25/24 19:30 18 04/25/24 19:30 18 04/25/24 19:28 100 04/25/24 19:28 79 04/25/24 19:23 99 04/25/24 19:23 71 04/25/24 19:19 71 04/25/24 19:19 119/66 04/25/24 19:18 99 04/25/24 19:18 72 04/25/24 19:13 98 04/25/24 19:13 73 04/25/24 19:08 100 04/25/24 19:08 94 H 04/25/24 19:06 36.5 C 18 04/25/24 19:03 99 04/25/24 19:03 76 04/25/24 18:59 94 04/25/24 18:59 85 04/25/24 18:58 98 04/25/24 18:58 80 04/25/24 18:53 98 04/25/24 18:53 80 04/25/24 18:48 99 04/25/24 18:48 91 H 04/25/24 18:48 121/66 04/25/24 18:43 100 04/25/24 18:43 85 04/25/24 18:38 100 04/25/24 18:38 101 H 04/25/24 18:35 82 04/25/24 18:35 117/68 04/25/24 18:33 100 04/25/24 18:33 84 04/25/24 18:28 100 04/25/24 18:28 89 04/25/24 18:23 100 04/25/24 18:23 79 04/25/24 18:19 78 04/25/24 18:19 113/57 L 04/25/24 18:18 100 04/25/24 18:18 87 04/25/24 18:17 92 04/25/24 18:17 83 04/25/24 18:13 100 04/25/24 18:13 80 04/25/24 18:08 100 04/25/24 18:08 81 04/25/24 18:07 91 04/25/24 18:07 80 04/25/24 18:05 73 04/25/24 18:05 103/53 L 04/25/24 18:03 100 04/25/24 18:03 76 04/25/24 17:58 100 04/25/24 17:58 80 04/25/24 17:53 100 04/25/24 17:53 74 04/25/24 17:50 81 04/25/24 17:50 131/75 04/25/24 17:48 100 04/25/24 17:48 76 04/25/24 17:43 100 04/25/24 17:43 73 04/25/24 17:38 98 04/25/24 17:38 78 04/25/24 17:34 86 04/25/24 17:34 132/77 04/25/24 17:33 100 04/25/24 17:33 83 04/25/24 17:28 100 04/25/24 17:28 79 04/25/24 17:23 100 04/25/24 17:23 76 04/25/24 17:18 100 04/25/24 17:18 77 04/25/24 17:18 117/68 04/25/24 17:13 100 04/25/24 17:13 69 04/25/24 17:08 100 04/25/24 17:08 71 04/25/24 17:04 71 04/25/24 17:04 127/73 04/25/24 17:03 100 04/25/24 17:03 74 04/25/24 16:58 100 04/25/24 16:58 74 04/25/24 16:53 100 04/25/24 16:53 72 04/25/24 16:50 75 04/25/24 16:50 118/56 L 04/25/24 16:48 100 04/25/24 16:48 68 04/25/24 16:43 100 04/25/24 16:43 72 04/25/24 16:38 98 04/25/24 16:38 73 04/25/24 16:33 100 04/25/24 16:33 78 04/25/24 16:33 122/70 04/25/24 16:28 100 04/25/24 16:28 70 04/25/24 16:23 100 04/25/24 16:23 79 04/25/24 16:20 75 04/25/24 16:20 121/70 04/25/24 16:18 100 04/25/24 16:18 72 04/25/24 16:13 100 04/25/24 16:13 69 04/25/24 16:08 100 04/25/24 16:08 72 04/25/24 16:06 77 04/25/24 16:06 124/76 01/28/25 16:03 100 04/25/24 16:03 79 04/25/24 15:58 100 04/25/24 15:58 72 04/25/24 15:53 100 04/25/24 15:53 72 04/25/24 15:53 92 04/25/24 15:53 82 04/25/24 15:49 81 04/25/24 15:49 152/69 H 04/25/24 15:48 100 04/25/24 15:48 80 04/25/24 15:43 99 04/25/24 15:43 84 04/25/24 15:41 92 04/25/24 15:41 82 04/25/24 15:38 100 04/25/24 15:38 80 04/25/24 15:36 93 04/25/24 15:36 78 04/25/24 15:33 100 04/25/24 15:33 95 H Coding Level of Care Code None Diagnoses Encounter for induction of labor Z34.90 Carrier of group B Streptococcus Z22.330
[2024-04-26] MEDS: AZITHROMYCIN 250 MG TAB PO STA (04:05)
[2024-04-26] MEDS: ACETAMINOPHEN 500 MG TAB PO SCH (04:08)
[2024-04-26] MEDS: CITRIC ACID/SODIUM CITRATE 15 ML UDC PO SCH (04:10)
[2024-04-26] MEDS ORDERED: MoRPHine SULFATE PF 1 MG/ML 10 ML AMP/VIAL ONE (04:12)
[2024-04-26] MEDS: SODIUM CHLORIDE 0.9% 1,000 ML IV SCH (04:18)
[2024-04-26] MEDS ORDERED: PHENYLEPHRINE HCL 10 MG/ML VIAL ONE (04:22)
[2024-04-26] MEDS ORDERED: LIDOCAINE 2%/EPINEPHRINE 1:200,000 20 ML PF ONE (04:23)
[2024-04-26] MEDS: ceFAZolin 3000MG 3,000 MG/72.5 ML BAG IV SCH (04:25)
[2024-04-26] MEDS ORDERED: SODIUM CHLORIDE 0.9% 1,000 ML IV SCH ×2 (04:30→05:38)
[2024-04-26] MEDS ORDERED: OXYTOCIN 10 UNITS/ML VIAL ONE (04:50)
--- NOTE | 2024-04-26 05:32 | Anesthesia Procedure Note ---
Date of Service April 26, 2024 Anesthesia Post Epidural Note Vital Signs Vital Signs: Temp Pulse Resp BP Pulse Ox 36.9 C 108 H 20 113/88 88 L 04/26/24 03:00 04/26/24 05:29 04/26/24 03:00 04/26/24 05:23 04/26/24 05:29 Notes Mental Status: alert / awake / arousable Nausea / Vomiting: adequately controlled Pain: adequately controlled Airway Patency, RR, SpO2: stable & adequate BP & HR: stable & adequate Hydration State: stable & adequate Neuraxial Anesthesia: was administered and sensory block is resolving Anesthetic Complications: no major complications apparent and Pt Satisfied with anesthetic care Epidural: Removed without complications and With tip intact
[2024-04-26] MEDS: OXYTOCIN 20 UNITS/LR 1,002 ML IV SCH (05:33)
--- NOTE | 2024-04-26 05:34 | Operative Report ---
PG Post Operative Report Pre & Post Diagnosis Operation Date: 04/26/24 03:45 Pre-Op Diagnosis: 1. Failure to descend 2. CPD 3. at 39 weeks Post-Op Diagnosis: 1. Same 2. Delivery of live male child at 0449 I identified the patient and participated in the time-out.: Yes Procedure Operation Date: 04/26/24 03:45 Actual Procedures pPrimary low transverse Section in - Ada Galan MD, FACOG Surgeon Ada Galan MD, FACOG Business Management Consultant Ramon Romero RN Estimated Blood Loss 685 Findings Consistent with Post-Op Diagnosis viable male , cephalic, thin mec noted at delivery nl utx/tubes/ovs, apgars 8/9 Fluids ivf--1000cc uop--100cc clear Specimens none Drains thornton Anesthesia Type Labor Epidural Disposition Accompanied Patient To Recovery: Yes Disposition: L&D Indications 24yowf G1 iol at 39 weeks who progressed to c/c/0, pushed for 90 minutes and labored down for an hour with no descent Description of Procedure The patient was taken to the operating room where she was identified verbally and by bracelet. She was then placed in the supine position with a leftward tilt. A Thornton catheter had been placed sterilely. the patient was prepped and draped in a normal standard fashion. the anesthetic was tested and found to be adequate. A time-out was held, identifying correct patient, procedure, positioning and preoperative antibiotics. There were no concerns. A Pfannenstiel skin incision was made with a knife and taken down to the underlying layer of fascia with the knife and Bovie electrocautery. Bleeding was attended to with the Bovie. The fascia was incised in the midline with the knife and taken out laterally with scissors. The superior edge of the fascial incision was grasped, elevated and the underlying layer of rectus muscle was taken off bluntly and with scissors. In a similar fashion, the inferior edge of the fascial incision was grasped, elevated and the underlying layer of rectus muscle was taken off bluntly and with scissors. The muscles were bluntly in the midline. The peritoneum was entered bluntly. The incision was then stretched. The bladder blade was placed. The vesicouterine peritoneum was identified, entered with scissors and taken out laterally with scissors. The bladder flap was created digitally A hysterotomy incision was scored with a knife and the incision was stretched superiorly and inferiorly with the chemical process equipment operator's fingers. Thin mec noted on entering the uterus. The operators hand was placed into the incision and the head was delivered atraumatically. No nuchal cord. The nose and mouth were bulb suctioned. the rest of the infant was then delivered without difficulty. The nose and mouth were again bulb suctioned. The cord was clamped and cut and the was then handed off to the awaiting show operations supervisor for drying and attention. Cord blood and segment were obtained. The placenta was Manually extracted. The uterus was exteriorized and cleared of all clot and debris with moistened laparotomy sponges. The hysterotomy incision was repaired in two layers, the first in a running locked layer, the second in an imbricating layer. Hemostasis was noted to be good. Posterior cul-de-sac was irrigated and cleared of all clot and debris. The hysterotomy incision was again inspected and a couple of sutures were needed for hemostasis. the uterus was reinteriorized. Hysterotomy incision was again inspected and found to be hemostatic. The fascia was then reapproximated with 0 Vicryl starting at the edges and meeting in the midline. The subcuticular tissues were copiously irrigated and bleeding was attended to with cautery. The skin was then closed with 4-0 Vicryl in a subcuticular fashion. Sponge , lap and needle counts were correct x 2 . the patient tolerated the procedure well and was taken to the recovery room in stable condition. I attest to the content of the Intraoperative Record and any orders documented therein. Any exceptions are noted below. OB Procedure Charges 53882
[2024-04-26] MEDS ORDERED: ONDANSETRON INJ 2 MG/ML 2 ML VIAL IV PRN (05:38)
[2024-04-26] MEDS ORDERED: PROMETHAZINE 12.5 MG/50.5 ML BAG IV PRN (05:38)
[2024-04-26] MEDS ORDERED: BENZOCAINE 20% SPRY 85 APPLN/85 GM CAN EXT PRN (05:38)
[2024-04-26] MEDS ORDERED: SENNA 8.6 MG TAB PO PRN (05:38)
[2024-04-26] MEDS ORDERED: diphenhydrAMINE Capsule 25 MG CAP PO PRN (05:38)
[2024-04-26] MEDS ORDERED: DIPHTHER/TETAN/PERTUS Vaccine (Tdap, Adol/Adult) 0.5mL IM ONE (05:38)
[2024-04-26] MEDS ORDERED: CALCIUM CARBONATE 500 MG CHEWABLE TAB PO PRN (05:38)
[2024-04-26] MEDS ORDERED: MAGNESIUM HYDROXIDE SUSP 30 ML UDC PO PRN (05:38)
[2024-04-26] MEDS ORDERED: HYDROmorphone INJ 0.5 MG/0.5 ML SYR IV PRN (05:38)
[2024-04-26] MEDS ORDERED: HYDROCORTISONE ACETATE 25 MG SUPP PR PRN (05:38)
[2024-04-26] MEDS ORDERED: diphenhydrAMINE 50 MG/ML VIAL IV PRN (05:38)
[2024-04-26] MEDS ORDERED: AZITHROMYCIN 500 MG in SODIUM CHLORIDE 0.9% 250 ML IV SCH (06:00)
--- NOTE | 2024-04-26 06:43 | Anesthesiology Progress Note ---
Date of Service April 26, 2024 Anesthesia Post Procedure Vital Signs Vital Signs: Temp Pulse Resp BP Pulse Ox 04/26/24 06:37 96 H 96 04/26/24 06:33 95 H 111/53 L 04/26/24 06:32 95 H 96 04/26/24 06:27 100 H 96 04/26/24 06:24 93 H 119/53 L 04/26/24 06:22 99 H 96 04/26/24 06:17 102 H 97 04/26/24 06:13 16 04/26/24 06:12 100 H 97 04/26/24 06:07 102 H 97 04/26/24 06:03 18 04/26/24 06:02 109 H 99 04/26/24 05:57 113 H 99 04/26/24 05:53 18 04/26/24 05:53 121 H 112/61 04/26/24 05:52 118 H 97 04/26/24 05:47 102 H 100 04/26/24 05:43 18 04/26/24 05:43 108 H 114/59 L 04/26/24 05:42 110 H 100 04/26/24 05:37 108 H 100 04/26/24 05:33 16 04/26/24 05:33 113 H 112/61 04/26/24 05:32 116 H 100 04/26/24 05:29 108 H 88 L 04/26/24 05:27 110 H 100 04/26/24 05:23 36.9 C 18 04/26/24 05:23 118 H 113/88 04/26/24 05:22 115 H 100 04/26/24 04:23 101 H 100 04/26/24 04:18 100 04/26/24 04:18 111 H 04/26/24 04:18 100 H 119/56 L 04/26/24 04:13 95 H 100 04/26/24 04:08 93 H 98 04/26/24 04:03 95 H 124/57 L 100 04/26/24 03:58 95 H 97 04/26/24 03:53 94 H 98 04/26/24 03:50 125 H 119/66 04/26/24 03:48 124 H 99 04/26/24 03:43 90 97 04/26/24 03:40 108 H 88 L 04/26/24 03:38 93 H 98 04/26/24 03:33 101 H 122/65 99 04/26/24 03:28 104 H 99 04/26/24 03:23 103 H 99 04/26/24 03:19 87 132/64 04/26/24 03:18 93 H 99 04/26/24 03:13 99 H 73 L 04/26/24 03:11 90 86 L 04/26/24 03:08 87 71 L 04/26/24 03:06 76 85 L 04/26/24 03:04 71 148/65 H 04/26/24 03:03 103 H 74 L 04/26/24 03:00 20 04/26/24 03:00 36.9 C 20 04/26/24 02:58 91 H 100 04/26/24 02:53 79 91 04/26/24 02:51 76 89 L 04/26/24 02:48 75 100 04/26/24 02:45 88 88 L 04/26/24 02:43 87 73 L 04/26/24 02:39 85 86 L 04/26/24 02:38 82 99 04/26/24 02:33 84 138/89 100 04/26/24 02:30 86 20 91 04/26/24 02:28 80 100 04/26/24 02:23 71 99 04/26/24 02:22 88 92 04/26/24 02:18 102 H 99 04/26/24 02:14 103 H 91 04/26/24 02:13 90 100 04/26/24 02:08 100 04/26/24 02:08 92 H 04/26/24 02:08 95 H 93 04/26/24 02:05 73 118/64 04/26/24 02:03 94 H 100 04/26/24 01:58 102 H 100 04/26/24 01:53 90 100 04/26/24 01:48 86 133/76 100 04/26/24 01:43 80 100 04/26/24 01:38 81 100 04/26/24 01:34 82 125/75 04/26/24 01:33 85 100 04/26/24 01:30 18 04/26/24 01:30 18 04/26/24 01:28 98 H 100 04/26/24 01:23 85 100 04/26/24 01:19 83 128/76 04/26/24 01:18 82 100 04/26/24 01:13 89 100 04/26/24 01:08 87 100 04/26/24 01:03 100 04/26/24 01:03 85 04/26/24 01:03 86 134/80 04/26/24 01:00 18 04/26/24 01:00 36.7 C 18 04/26/24 00:58 84 100 04/26/24 00:53 92 H 100 04/26/24 00:48 78 128/66 100 04/26/24 00:43 73 100 04/26/24 00:38 74 100 04/26/24 00:34 75 127/70 04/26/24 00:33 74 100 04/26/24 00:30 18 04/26/24 00:30 18 04/26/24 00:28 87 99 04/26/24 00:27 81 91 04/26/24 00:23 76 99 04/26/24 00:18 80 131/67 100 04/26/24 00:13 87 100 04/26/24 00:09 93 H 92 04/26/24 00:08 68 96 04/26/24 00:03 75 102/53 L 98 04/26/24 00:00 18 04/26/24 00:00 18 04/25/24 23:58 97 04/25/24 23:58 66 04/25/24 23:53 98 04/25/24 23:53 70 04/25/24 23:50 70 04/25/24 23:50 102/50 L 04/25/24 23:48 98 04/25/24 23:48 77 04/25/24 23:43 96 04/25/24 23:43 71 04/25/24 23:38 97 04/25/24 23:38 66 04/25/24 23:33 98 04/25/24 23:33 67 04/25/24 23:33 96/50 L 04/25/24 23:30 16 04/25/24 23:30 16 04/25/24 23:28 97 04/25/24 23:28 69 04/25/24 23:23 97 04/25/24 23:23 70 04/25/24 23:18 98 04/25/24 23:18 68 04/25/24 23:18 67 04/25/24 23:18 99/55 L 04/25/24 23:13 98 04/25/24 23:13 68 04/25/24 23:08 99 04/25/24 23:08 72 04/25/24 23:03 100 04/25/24 23:03 73 04/25/24 23:03 108/53 L 04/25/24 23:00 18 04/25/24 23:00 36.8 C 18 04/25/24 22:58 100 04/25/24 22:58 77 04/25/24 22:53 100 04/25/24 22:53 98 H 04/25/24 22:50 91 04/25/24 22:50 80 04/25/24 22:48 99 04/25/24 22:48 80 04/25/24 22:48 79 04/25/24 22:48 121/66 04/25/24 22:43 97 04/25/24 22:43 76 04/25/24 22:38 98 04/25/24 22:38 75 04/25/24 22:34 72 04/25/24 22:34 112/59 L 04/25/24 22:33 98 04/25/24 22:33 74 04/25/24 22:30 16 04/25/24 22:30 16 04/25/24 22:28 98 04/25/24 22:28 73 04/25/24 22:23 97 04/25/24 22:23 72 04/25/24 22:19 78 04/25/24 22:19 114/60 04/25/24 22:18 97 04/25/24 22:18 79 04/25/24 22:13 96 04/25/24 22:13 82 04/25/24 22:08 97 04/25/24 22:08 78 04/25/24 22:04 74 04/25/24 22:04 109/57 L 04/25/24 22:03 97 04/25/24 22:03 77 04/25/24 22:00 18 04/25/24 22:00 18 04/25/24 21:58 96 04/25/24 21:58 76 04/25/24 21:53 98 04/25/24 21:53 74 04/25/24 21:48 100 04/25/24 21:48 74 04/25/24 21:48 116/65 04/25/24 21:46 75 04/25/24 21:46 113/63 04/25/24 21:43 100 04/25/24 21:43 69 04/25/24 21:38 100 04/25/24 21:38 73 04/25/24 21:35 93 H 04/25/24 21:35 110/63 04/25/24 21:33 100 04/25/24 21:33 81 04/25/24 21:28 100 04/25/24 21:28 75 04/25/24 21:28 90 04/25/24 21:28 90 04/25/24 21:23 100 04/25/24 21:23 77 04/25/24 21:19 76 04/25/24 21:19 107/58 L 04/25/24 21:18 100 04/25/24 21:18 75 04/25/24 21:13 100 04/25/24 21:13 77 04/25/24 21:13 109/57 L 04/25/24 21:12 93 04/25/24 21:12 78 04/25/24 21:08 100 04/25/24 21:08 82 04/25/24 21:04 78 04/25/24 21:04 120/68 04/25/24 21:03 99 04/25/24 21:03 81 04/25/24 21:00 18 04/25/24 21:00 36.5 C 18 04/25/24 20:58 99 04/25/24 20:58 79 04/25/24 20:53 99 04/25/24 20:53 83 04/25/24 20:49 77 04/25/24 20:49 116/72 04/25/24 20:48 100 04/25/24 20:48 82 04/25/24 20:43 100 04/25/24 20:43 81 04/25/24 20:38 99 04/25/24 20:38 79 04/25/24 20:34 76 04/25/24 20:34 118/64 04/25/24 20:33 99 04/25/24 20:33 82 04/25/24 20:30 18 04/25/24 20:30 18 04/25/24 20:28 99 04/25/24 20:28 79 04/25/24 20:23 100 04/25/24 20:23 94 H 04/25/24 20:20 77 04/25/24 20:20 119/72 04/25/24 20:18 100 04/25/24 20:18 92 H 04/25/24 20:14 92 04/25/24 20:14 97 H 04/25/24 20:13 100 04/25/24 20:13 95 H 04/25/24 20:08 100 04/25/24 20:08 89 04/25/24 20:03 99 04/25/24 20:03 73 04/25/24 20:03 118/63 04/25/24 20:00 18 04/25/24 20:00 18 04/25/24 19:58 99 04/25/24 19:58 74 04/25/24 19:53 99 04/25/24 19:53 83 04/25/24 19:49 74 04/25/24 19:49 119/64 04/25/24 19:48 100 04/25/24 19:48 75 04/25/24 19:43 99 04/25/24 19:43 76 04/25/24 19:38 98 04/25/24 19:38 71 04/25/24 19:33 98 04/25/24 19:33 73 04/25/24 19:33 120/66 04/25/24 19:30 18 04/25/24 19:30 18 04/25/24 19:28 100 04/25/24 19:28 79 04/25/24 19:23 99 04/25/24 19:23 71 04/25/24 19:19 71 04/25/24 19:19 119/66 04/25/24 19:18 99 04/25/24 19:18 72 04/25/24 19:13 98 04/25/24 19:13 73 04/25/24 19:08 100 04/25/24 19:08 94 H 04/25/24 19:06 36.5 C 18 04/25/24 19:03 99 04/25/24 19:03 76 04/25/24 18:59 94 04/25/24 18:59 85 04/25/24 18:58 98 04/25/24 18:58 80 04/25/24 18:53 98 04/25/24 18:53 80 04/25/24 18:48 99 04/25/24 18:48 91 H 04/25/24 18:48 121/66 04/25/24 18:43 100 04/25/24 18:43 85 04/25/24 18:38 100 04/25/24 18:38 101 H 04/25/24 18:35 82 04/25/24 18:35 117/68 04/25/24 18:33 100 04/25/24 18:33 84 04/25/24 18:28 100 04/25/24 18:28 89 04/25/24 18:23 100 04/25/24 18:23 79 04/25/24 18:19 78 04/25/24 18:19 113/57 L 04/25/24 18:18 100 04/25/24 18:18 87 04/25/24 18:17 92 04/25/24 18:17 83 04/25/24 18:13 100 04/25/24 18:13 80 04/25/24 18:08 100 04/25/24 18:08 81 04/25/24 18:07 91 04/25/24 18:07 80 04/25/24 18:05 73 04/25/24 18:05 103/53 L 04/25/24 18:03 100 04/25/24 18:03 76 04/25/24 17:58 100 04/25/24 17:58 80 04/25/24 17:53 100 04/25/24 17:53 74 04/25/24 17:50 81 04/25/24 17:50 131/75 04/25/24 17:48 100 04/25/24 17:48 76 04/25/24 17:43 100 04/25/24 17:43 73 04/25/24 17:38 98 04/25/24 17:38 78 04/25/24 17:34 86 04/25/24 17:34 132/77 04/25/24 17:33 100 04/25/24 17:33 83 04/25/24 17:28 100 04/25/24 17:28 79 04/25/24 17:23 100 04/25/24 17:23 76 04/25/24 17:18 100 04/25/24 17:18 77 04/25/24 17:18 117/68 04/25/24 17:13 100 04/25/24 17:13 69 04/25/24 17:08 100 04/25/24 17:08 71 04/25/24 17:04 71 04/25/24 17:04 127/73 04/25/24 17:03 100 04/25/24 17:03 74 04/25/24 16:58 100 04/25/24 16:58 74 04/25/24 16:53 100 04/25/24 16:53 72 04/25/24 16:50 75 04/25/24 16:50 118/56 L 04/25/24 16:48 100 04/25/24 16:48 68 04/25/24 16:43 100 04/25/24 16:43 72 04/25/24 16:38 98 04/25/24 16:38 73 04/25/24 16:33 100 04/25/24 16:33 78 04/25/24 16:33 122/70 04/25/24 16:28 100 04/25/24 16:28 70 04/25/24 16:23 100 04/25/24 16:23 79 04/25/24 16:20 75 04/25/24 16:20 121/70 04/25/24 16:18 100 04/25/24 16:18 72 04/25/24 16:13 100 04/25/24 16:13 69 04/25/24 16:08 100 04/25/24 16:08 72 04/25/24 16:06 77 04/25/24 16:06 124/76 04/25/24 16:03 100 04/25/24 16:03 79 04/25/24 15:58 100 04/25/24 15:58 72 04/25/24 15:53 100 04/25/24 15:53 72 04/25/24 15:53 92 04/25/24 15:53 82 04/25/24 15:49 81 04/25/24 15:49 152/69 H 04/25/24 15:48 100 04/25/24 15:48 80 04/25/24 15:43 99 04/25/24 15:43 84 04/25/24 15:41 92 04/25/24 15:41 82 04/25/24 15:38 100 04/25/24 15:38 80 04/25/24 15:36 93 04/25/24 15:36 78 04/25/24 15:33 100 04/25/24 15:33 95 H 04/25/24 15:28 100 04/25/24 15:28 81 04/25/24 15:23 99 04/25/24 15:23 77 04/25/24 15:19 88 L 04/25/24 15:19 88 04/25/24 15:18 100 04/25/24 15:18 87 04/25/24 15:18 78 04/25/24 15:18 102/58 L 04/25/24 15:15 20 04/25/24 15:15 36.6 C 20 04/25/24 15:13 100 04/25/24 15:13 79 04/25/24 15:08 100 04/25/24 15:08 81 04/25/24 15:05 85 04/25/24 15:05 114/57 L 04/25/24 15:03 100 04/25/24 15:03 84 04/25/24 14:58 100 04/25/24 14:58 79 04/25/24 14:53 100 04/25/24 14:53 85 04/25/24 14:48 100 04/25/24 14:48 89 04/25/24 14:48 107/53 L 04/25/24 14:43 100 04/25/24 14:43 93 H 04/25/24 14:43 88 04/25/24 14:43 104/51 L 04/25/24 14:39 96 H 04/25/24 14:39 117/56 L 04/25/24 14:38 100 04/25/24 14:38 92 H 04/25/24 14:33 100 04/25/24 14:33 94 H 04/25/24 14:31 90 04/25/24 14:31 113/53 L 04/25/24 14:29 104 H 04/25/24 14:29 113/56 L 04/25/24 14:28 100 04/25/24 14:28 110 H 04/25/24 14:27 118 H 04/25/24 14:27 103/53 L 04/25/24 14:25 93 H 04/25/24 14:25 105/52 L 04/25/24 14:23 100 04/25/24 14:23 92 H 04/25/24 14:23 120/67 04/25/24 14:21 80 04/25/24 14:21 129/71 04/25/24 14:18 98 04/25/24 14:18 87 04/25/24 14:13 100 04/25/24 14:13 76 04/25/24 14:08 99 04/25/24 14:08 83 04/25/24 14:03 99 04/25/24 14:03 73 04/25/24 13:58 100 04/25/24 13:58 67 04/25/24 13:53 100 04/25/24 13:53 72 04/25/24 13:49 82 04/25/24 13:49 137/79 04/25/24 13:48 100 04/25/24 13:48 78 04/25/24 12:00 75 04/25/24 12:00 146/79 H 04/25/24 10:59 82 04/25/24 10:59 126/75 04/25/24 10:04 70 04/25/24 10:04 142/73 H 04/25/24 09:02 83 04/25/24 09:02 127/68 04/25/24 07:39 36.8 C 90 20 123/61 04/25/24 07:33 20 04/25/24 07:33 36.8 C 20 04/25/24 07:31 90 123/61 Transfer of Care Handoff Completed per policy Notes Mental Status: alert / awake / arousable and participated in evaluation Nausea / Vomiting: adequately controlled Pain: adequately controlled Airway Patency, RR, SpO2: stable & adequate BP & HR: stable & adequate Hydration State: stable & adequate Neuraxial Anesthesia: was administered and sensory block is resolving Anesthetic Complications: no major complications apparent and Pt Satisfied with anesthetic care
[2024-04-26] MEDS: DOCUSATE SODIUM 100 MG CAP PO SCH (09:23)
[2024-04-26] MEDS: PRENATAL VITAMIN 1 TAB PO SCH (09:23)
[2024-04-26] MEDS: SIMETHICONE 80 MG CHEW PO SCH (09:23)
[2024-04-26] MEDS: FERROUS SULFATE 325 MG TAB PO SCH (09:24)
[2024-04-26] MEDS: KETOROLAC 30 MG/ML VIAL IV SCH (09:25)
[2024-04-26] MEDS: ACETAMINOPHEN 325 MG TAB PO SCH (11:31)
[2024-04-27] MEDS ORDERED: KETOROLAC 30 MG/ML VIAL IV PRN (05:24)
[2024-04-27] MEDS: IBUPROFEN 600 MG TAB PO SCH (05:56)
[2024-04-27 06:18] LABS: Basophils # (auto) 0.04 K/uL (0.00-0.20); Basophils % (auto) 0.2 %; Eosinophils # (auto) 0.06 K/uL (0.00-0.50); Eosinophils % (auto) 0.3 %; Hematocrit (blood only) 33.6 % (37.0-47.0); Hemoglobin 11.7 g/dl (12.0-16.0); Immature Granulocytes # (auto) 0.11 K/uL (0.01-0.20); Immature Granulocytes % (auto) 0.6 %; Lymphocytes # (auto) 1.85 K/uL (1.20-3.40); Lymphocytes % (auto) 9.4 %; Mean Corpuscular Hgb Conc 34.8 g/dL (32.0-36.0); Mean Corpuscular Volume 83.4 fL (80.0-100.0); Mean Platelet Volume 11.4 fL (9.4-12.4); Monocytes # (auto) 1.05 K/uL (0.11-0.59); Monocytes % (auto) 5.3 %; Neutrophils # (auto) 16.64 K/uL (1.40-6.50); Neutrophils % (auto) 84.2 %; Platelet Count 184 K/uL (130-400); RDW Coefficient of Variation 14.9 % (11.5-14.5); RDW Standard Deviation 45.1 fL (36.4-46.3); Red Blood Count 4.03 M/uL (4.20-5.40); White Blood Count 19.75 K/ul (4.8-10.8)
--- NOTE | 2024-04-27 07:55 | Obstetrical Progress Note ---
Date of Service April 27, 2024 Assessment & Plan (1) Encounter for assessment: Plan: Patient is POD 1 s/p pLTCS and doing well - Eating well, voiding well, ambulating well - vitals reviewed and within normal limits - pain well controlled with analgesics - OOB, ambulation, diet progression as tolerated - Blood type: A+, GBS pos, rubella immune - Plan to discharge tomorrow - After discharge, 6 week follow up with OBGYN Admission and Anticipated Discharge Date Admission Date: April 25, 2024 Supervising Physician Co-Signing Physician Notes Resident Physician Supervision Note: I interviewed and examined the patient. Discussed with Dr. Castillo and agree with findings and plan as documented in the note. Any exceptions or clarifications are listed here: She will be restarted on Lovenox 40mg SQ dialy this morning. [facility] only has about 4 more days supply but will contact for refills for next 6 weeks. Documented By: Rebeca Combs MD, FACOG Subjective 24 yo post-operative day 1 s/p pLTCS due to failure to descend and cephalopelvic disproportion Ambulation: ambulating normally Voiding: no voiding problems Passing Gas:: Yes Diet Tolerance:: regular diet Lochia:: Small Feeding Type:: breast feeding Current Pain Level:5/10 Resting comfortably this AM in NAD. Denies REYES, CP, SOB, N/V/D, LE pain/swelling. Physical Exam Physical Exam: General: patient resting comfortably, NAD, non-toxic in appearance, answers questions appropriately. Skin: warm, dry, intact HEENT: NC/AT, anicteric sclera, conjunctiva without injection, moist mucus membranes. Heart: +S1/S2, regular, no m/r/g Lungs: equal air entry bilaterally, no rales/rhonchi/wheezes Abd: +BS, soft, NT/ND, uterine fundus firm at umbilicus, caesarean incision clean with minimal bruising Ext: warm, no clubbing/cyanosis or edema Neuro: nonfocal, speech intact, no facial droop, moving all extremities. Results & Data Vital Signs (Past 12 Hours) Vital Signs Temp Pulse Resp BP Pulse Ox O2 Del Method 04/26/24 23:35 36.7 C 88 16 138/76 99 Room Air 04/26/24 20:00 16 99 Resident Activity Tracking Resident Involvement: Resident Care Provided Care Provided: OB Delivery
[2024-04-27] MEDS: ENOXAPARIN INJ 40 MG/0.4 ML SYR SQ SCH (08:53)
[2024-04-27] MEDS ORDERED: MEASLES, MUMPS & RUBELLA VIRUS VACCINE (MMR) 0.5ML VIAL SQ ONE (14:00)
[2024-04-27] MEDS: oxyCODONE HCL IR 5 MG TAB (IMMEDIATE RELEASE) PO PRN (14:03)
[2024-04-27 19:18] VITALS: TEMP 98.1
[2024-04-27] MEDS ORDERED: bisacodyL 5 MG TABEC PO SCH (20:00)
[2024-04-27 23:10] VITALS: O2SAT 98
[2024-04-28] MEDS ORDERED: bisacodyL 10 MG SUPP PR PRN (05:24)
[2024-04-28 07:39] LABS: Hemoglobin 10.2 g/dl (12.0-16.0)
[2024-04-28] MEDS: IBUPROFEN 600 MG TAB PO PRN (07:51)
--- NOTE | 2024-04-28 08:17 | Obstetrical Progress Note ---
Date of Service April 28, 2024 Assessment & Plan (1) Encounter for assessment: Plan: Patient is POD 2 s/p pLTCS and doing well - Eating well, voiding well, ambulating well - vitals reviewed and within normal limits - pain well controlled with analgesics - OOB, ambulation, diet progression as tolerated - Blood type: A+, GBS pos, rubella immune - Plan to discharge today - After discharge, 6 week follow up with OBGYN Admission and Anticipated Discharge Date Admission Date: April 25, 2024 Supervising Physician Co-Signing Physician Notes Resident Physician Supervision Note: I interviewed and examined the patient. Discussed with Dr. Castillo and agree with findings and plan as documented in the note. Any exceptions or clarifications are listed here: POD2 doing well. Desires DC home. Rx Percocet #10 tabs sent to [facility], also sent Rx for lovenox 40mg SQ x 6w PP per hematology recommendations. Documented By: Ayleen Gay, Subjective 24 yo post-operative day 2 s/p pLTCS due to failure to descend and cephalopelvic disproportion Ambulation: ambulating normally Voiding: no voiding problems Passing Gas:: Yes Diet Tolerance:: regular diet Lochia:: Small Feeding Type:: breast feeding Current Pain Level:5/10 Resting comfortably this AM in NAD. Denies REYES, CP, SOB, N/V/D, LE pain/swelling. Physical Exam Physical Exam: General: patient resting comfortably, NAD, non-toxic in appearance, answers questions appropriately. Skin: warm, dry, intact HEENT: NC/AT, anicteric sclera, conjunctiva without injection, moist mucus membranes. Heart: +S1/S2, regular, no m/r/g Lungs: equal air entry bilaterally, no rales/rhonchi/wheezes Abd: +BS, soft, NT/ND, uterine fundus firm at umbilicus, caesarean incision clean with minimal bruising Ext: warm, no clubbing/cyanosis or edema Neuro: nonfocal, speech intact, no facial droop, moving all extremities. Results & Data Vital Signs (Past 12 Hours) Vital Signs Temp Pulse Resp BP Pulse Ox O2 Del Method 04/27/24 23:09 36.7 C 99 H 20 99/60 L 98 Room Air Resident Activity Tracking Resident Involvement: Resident Care Provided Care Provided: OB Delivery
[2024-04-28 08:43] VITALS: BP 123/75; PULSE 83; RESP 18
[2024-04-28] MEDS ORDERED: ACETAMINOPHEN 325 MG TAB PO PRN (11:24)
--- NOTE | 2024-05-01 16:56 | Discharge Summary ---
Date of Service May 01, 2024 Admission HPI Per Admitting Provider Patient is aa 24 with iup at 39 3/7 weeks who presents for scheduled iol as was on heparin for a hx of dvt. has been uncomplicated. Presented for a bulb last night but it fell out prior to leaving. Notees no vb/lof. +fm. and Delivery Plans Hx of DVT on OCP *follow with heme and recs Lovenox and switching to heparin at 36wks - on heparin 5000u bid Lovenox pp - IOL 04/25 Obesity (BMI between 35-39 @ beginning of ) *Growth US @ 32 wks *Weekly NSTs @ 36wks * GBS + - Treat in labor Rubella equivocal-offer pp OB Labs: Blood Type A Positive 09/24/23 Antibody Screen NEGATIVE 09/24/23 Hgb 14.1 g/dl (12.0-16.0) 03/30/24 Hct 42.0 % (37.0-47.0) 03/30/24 MCV 83.8 fL (80.0-100.0) 03/30/24 Plt Count 250 K/uL (130-400) 03/30/24 Rubella IgG Antibody Equivocal (Immune) L 09/24/23 RPR Nonreactive (Nonreactive) 09/24/23 Hep Bs Antigen Negative (Negative) 09/24/23 Hepatitis C Antibody Negative (Negative) 09/24/23 HIV 1&2 Ab/P24 Ag 4thGn Negative (Negative) 09/24/23 Glucose 1 Hr 50 gm 132 mg/dl (70-130) H 11/19/23 OB Optional Labs: Chlamydia trachomatis RNA Not Detected (NotDetected) 09/24/23 Neisseria gonorrhoeae RNA Not Detected (NotDetected) 09/24/23 Thyroid Stimulating Hormone (TSH) 1.910 uIu/ml (0.300-4.500) 10/08/23 Labs Reviewed: neg horizon 2022 gbs pos--[facility] Discharge Data Consultations 04/25/24 07:51 Consult Anesthesiology Stat Procedures Performed Operation Date: 04/26/24 03:45 Actual Procedures p Section in LD - Ada Galan MD, FACOG Hospital Course (1) Encounter for induction of labor: (2) Carrier of group B Streptococcus: Plan Patient was admitted. Underwent iol with pitocin. Got epidural, arom , iupc/fse. Progressed to c/c/0. Labored down for one hour and then pushed for 1.5 hours without any descent of the head. Fetus was reassuring. Discussed continued pushing vs. c/s and they were or with progressing with c/s. Underwent a primary ltcs with qbl 685cc. Postop course was uncomplicated--tolerate regular diet, ambulated without difficulty, pain controlled on oral pain meds, voided after removal of her thorn[place] discharge h/h 10.2/30.0. d/c on postoperative day 2. Will f/u in the office in 6 weeks. Coding Level of Care Code None Diagnoses Encounter for induction of labor Z34.90 Carrier of group B Streptococcus Z22.330
== END 2024-04-28 11:00 | disposition home or self-care (01) | DRG 787 ==
LOC: 4S1 07:23 → 4E2 04-26 08:16
DX: O99.214 Obesity complicating childbirth; Z37.0 Single live birth; O62.1 Secondary uterine inertia; Z79.01 Long term (current) use of anticoagulants; Z86.718 Personal history of other venous thrombosis and embolism; Z68.41 Body mass index [BMI] 40.0-44.9, adult; Z91.048 Other nonmedicinal substance allergy status; O99.824 Streptococcus B carrier state complicating childbirth; Z77.22 Contact with and (suspected) exposure to environmental tobacco smoke (acute) (chronic); Z86.16 Personal history of COVID-19; O33.9 Maternal care for disproportion, unspecified; Z3A.39 39 weeks gestation of pregnancy